=== PATIENT | female | born 1945 | race Caucasian/White ===

== ENCOUNTER → 2016-08-15 | Outpatient (CLI) | payer MEDICARE, OTHER | END | disposition home or self-care (01) | LOC: GMAM 14:34 | PROVIDERS: ATTEND Family Medicine | DX: D64.9 Anemia, unspecified (principal) ==

== ENCOUNTER → 2016-09-17 | Outpatient (CLI) | payer MEDICARE, OTHER | LOC: LAB.O 15:59 | PROVIDERS: ATTEND Internal Medicine Hematology & Oncology | DX: D70.9 Neutropenia, unspecified (principal); D64.9 Anemia, unspecified ==

== ENCOUNTER → 2017-02-05 | Outpatient (CLI) | payer MEDICARE, OTHER | END | disposition home or self-care (01) | LOC: GMAM 16:34 | PROVIDERS: ATTEND Family Medicine | DX: E53.8 Deficiency of other specified B group vitamins (principal); E55.9 Vitamin D deficiency, unspecified ==

== ENCOUNTER → 2017-04-17 | Outpatient (CLI) | payer MEDICARE, BC | END | disposition home or self-care (01) | LOC: GMAM 15:13 | PROVIDERS: ATTEND Family Medicine | DX: R10.84 Generalized abdominal pain (principal) ==

== ENCOUNTER → 2017-04-22 | Outpatient (CLI) | payer MEDICARE, BC ==
--- NOTE | 2017-04-22 13:43 | CT ---
EXAM DESCRIPTION: Abdoment/Pelvis w/o Contrast CLINICAL HISTORY: ABD PAIN COMPARISON: None. TECHNIQUE: Noncontrast transaxial CT images of the abdomen and pelvis are obtained. This exam was performed according to our departmental dose-optimization program, which includes automated exposure control, adjustment of the mA and/or kV according to patient size and/or use of iterative reconstruction technique . FINDINGS: The visualized lung bases show no acute findings. Given the limitations of a noncontrast exam the liver, spleen, and adrenal glands are unremarkable. Surgical clips from cholecystectomy are seen. There is moderate to severe fatty replacement and atrophy of the pancreas which can be seen in patients with long-standing diabetes. Moderate atherosclerotic disease is seen without aneurysmal dilatation of the aorta. There is a tiny 2 mm calcification in the cortex of the upper pole right kidney on image 74 coronal reconstructed images. Small 2 mm cortical calcification in the lower pole of the left kidney is seen. Question nonobstructing calcification in an upper pole calyx of the left kidney on image 76. No ureteral calcification or obstruction is seen. Urinary bladder is contracted and not evaluated. There does appear to be some air in the urinary bladder could be iatrogenic related to recent catheterization. Fistula with the bowel is considered less likely although not entirely excluded. The appendix is not identified. The uterus is presumed surgically absent. The ovaries are not identified. Stomach is contracted and not well evaluated. No small bowel obstruction is seen. Focal hyperdense material seen throughout the colon. There are moderate scattered diverticuli throughout the colon without associated inflammatory changes or fluid collections. Osseous structures show degenerative changes of the spine. No aggressive bony lesions are seen.. IMPRESSION: Nonspecific calcifications in the renal cortex are seen bilaterally with nonobstructing left nephrolithiasis. No acute findings on CT of the abdomen and pelvis. Colon diverticulosis without CT evidence of diverticulitis. Other findings as described in body of the report Electronically signed by: Kel Booker MD 04/22/2017 1:42 PM CDT
== END | disposition home or self-care (01) ==
LOC: CT 09:44
PROVIDERS: ATTEND Family Medicine
DX: N20.0 Calculus of kidney (principal); R10.84 Generalized abdominal pain

== ENCOUNTER → 2017-06-10 | Outpatient (CLI) | payer MEDICARE, BC | END | disposition home or self-care (01) | LOC: GMAM 11:34 | PROVIDERS: ATTEND Family Medicine | DX: E53.8 Deficiency of other specified B group vitamins (principal); E55.9 Vitamin D deficiency, unspecified ==

== ENCOUNTER → 2017-06-17 | Outpatient (CLI) | payer MEDICARE, BC ==
--- NOTE | 2017-06-17 17:28 | MAM ---
EXAM DESCRIPTION: 3D Screening BILATERAL : Digital Mammography. CLINICAL HISTORY: 71 years Female SCREENING . No complaints. No family history of breast cancer. Postmenopausal. No HRT. COMPARISON: 2-D digital screening bilateral studies 10/24/2015 and 10/18/2014. No prior reports available. TECHNIQUE: Bilateral CC and MLO projection full-field images, 3-D tomosynthesis digital mammographic technique. Also bilateral synthesized CC/ MLO full-field images. CAD not utilized. FINDINGS: The breast parenchymal density pattern is: Heterogeneously dense breast tissue, which may obscure small masses. No skin thickening or nipple retraction . Bilateral ductal type calcifications and solitary calcifications more in the right breast. Calcifications have increased bilaterally since prior study. Bilateral intramammary lymph nodes. No focal, stellate mass or density, focal asymmetry , and no suspicious microcalcifications or laterally. IMPRESSION: BI-RADS CATEGORY: 2 - BENIGN FINDINGS. FOLLOW UP: Routine digital bilateral screening, one year interval from May 2017. Written communication explaining the IMPRESSION and follow-up, will be mailed to the patient and referring health care provider. According to the [employer], yearly mammograms are recommended starting at age 40 and continuing as long as a woman is in good health. Any breast change noted on a breast self-exam should be reported promptly to the patient's healthcare provider. Breast MRI is recommended for women with an approximately 20-25% or greater lifetime risk of breast cancer, including women with a strong family history of breast or ovarian cancer and women who have been treated for Hodgkin's disease. A negative mammographic report should not delay tissue diagnosis in patients with significant clinical history or physical findings. Extremely dense breast tissue limits the sensitivity of digital mammography. Electronically signed by: Andrey Grider MD 06/17/2017 5:[address]
== END | disposition home or self-care (01) ==
LOC: MAMMO 09:57
PROVIDERS: ATTEND Family Medicine
DX: Z12.31 Encounter for screening mammogram for malignant neoplasm of breast (principal)
CPT/HCPCS: 77063; G0202

== ENCOUNTER 2017-09-11 12:40 | Emergency (ER) | payer MEDICARE, BC ==
--- NOTE | 2017-09-11 13:05 | ED.PDOC ---
History of Present Illness - General Chief Complaint: Trauma Stated Complaint: right shoulder and knee pain Time Seen by Provider: 09/11/17 12:50 Source: patient Exam Limitations: no limitations - History of Present Illness Initial Comments: Divya Candelaria 72 y/o female stated that as she was going up the platform of the [employer] tripped on the step fell on her right side with dull ache on her right shoulder and knee after the incident.Denies neck,head ,hip pains or passing out.Painful to move right arm. Occurred: just prior to arrival Severity: moderate Injuries/Pain Location: other - right upper and right knee Reason for Fall: tripped Loss of Consciousness: no loss of consciousness Improving Factors: rest Worsening Factors: movement Associated Symptoms (Fall): denies symptoms Allergies/Adverse Reactions: Allergies NO KNOWN ALLERGY Allergy (Verified 09/11/17 12:56) Home Medications: Ambulatory Orders Atorvastatin Calcium [Lipitor] 10 mg PO DAILY 09/11/17 Bisoprolol Fumarate 2.5 mg PO DAILY 09/11/17 Memantine HCl-Donepezil HCl [Namzaric 28-10 mg] 1 cap PO DAILY 09/11/17 Metformin HCl 1,000 mg PO BID 09/11/17 Tramadol HCl 50 mg PO BID #14 tab 09/11/17 Review of Systems - Review of Systems Constitutional: States: no symptoms reported EENTM: States: no symptoms reported Respiratory: States: no symptoms reported Cardiology: States: no symptoms reported Musculoskeletal: States: see HPI All other Systems: Reviewed and Negative, No Change from Baseline Past Medical History (General) - Patient Medical History Hx Stroke: No Hx Dementia: Yes Hx Congestive Heart Failure: No Hx Diabetes: Yes Surgical History: appendectomy, cholecystectomy, other - hysterectomy,knee - Vaccination History Hx Influenza Vaccination: Yes Hx Pneumococcal Vaccination: Yes - Social History Hx Tobacco Use: No Hx Alcohol Use: No Hx Physical Abuse: No Hx Emotional Abuse: No Hx Suspected Abuse: No - Activities of Daily Living Patient Lives Alone: No Grooming Ability: Independent Eating (Feeding) Ability: Independent Toileting Ability: Independent - Female History Patient is a Female of Child Bearing Age (10 -59 yrs old): Yes Patient : No Physical Exam - Physical Exam General Appearance: Alert, Comfortable, No apparent distress Head Injury: no evidence of injury Eye Exam: bilateral normal ENT Exam: hearing grossly normal, no evidence of ENT injury, no dental injury Peripheral Pulses: radial,right: 2+, radial,left: 2+ Cardiovascular/Respiratory: regular rate, rhythm, no M/R/G, normal peripheral pulses, no JVD Gastrointestinal/Abdominal: non tender, soft, no organomegaly Back Exam: no vertebral tenderness Neurologic: no motor/sensory deficits, alert, oriented x 3 Skin Exam: normal color, warm/dry - Nilesh Coma Score Best Eye Response (Garrison): (4) open spontaneously Best Verbal Response (Nilesh): (5) oriented Best Motor Response (Nilesh): (6) obeys commands Garrison Total: 15 Progress - Progress Progress: 09/11/17 13:07 Vital Signs - 8 hr 09/11/17 12:53 Temperature 96.6 F L Pulse Rate [ 61 Left Brachial] Respiratory 20 Rate Blood Pressure 152/76 [Left Arm] O2 Sat by Pulse 100 Oximetry - EKG/XRAY/CT XRAY: - right humeral head fracture Departure - Departure Clinical Impression: Fall Qualifiers: Encounter type: initial encounter Qualified Code(s): W19.XXXA - Unspecified fall, initial encounter Fracture, humerus, head Qualifiers: Encounter type: initial encounter Fracture type: closed Laterality: right Qualified Code(s): S42.291A - Other displaced fracture of upper end of right humerus, initial encounter for closed fracture Pain, knee Qualifiers: Chronicity: unspecified Laterality: right Qualified Code(s): M25.561 - Pain in right knee Time of Disposition: 13:49 Disposition: Discharge to Home or Self Care Condition: Good Departure Forms: ED Discharge - Pt. Copy, Patient Portal Self Enrollment Instructions: DI for Shoulder Fracture Referrals: Mt Osullivan MD [Primary Care Provider] - 1-2 Weeks Prescriptions: Tramadol HCl 50 mg PO BID #14 tab Home Medications: Ambulatory Orders Atorvastatin Calcium [Lipitor] 10 mg PO DAILY 09/11/17 Bisoprolol Fumarate 2.5 mg PO DAILY 09/11/17 Memantine HCl-Donepezil HCl [Namzaric 28-10 mg] 1 cap PO DAILY 09/11/17 Metformin HCl 1,000 mg PO BID 09/11/17 Tramadol HCl 50 mg PO BID #14 tab 09/11/17 Additional Instructions: Follow up with primary Md 09/12/2017
[2017-09-11 13:06] VITALS: TEMP 96.6
--- NOTE | 2017-09-11 13:41 | RAD ---
Right humerus HISTORY: Pain FINDINGS: Two views of right humerus demonstrate impacted and mildly angulated fracture at the junction of the humeral head and neck. Possible additional cortical dehiscence in humeral head. Remainder of the humerus demonstrate that no additional injury. Bony alignment in the shoulder and elbow joints are grossly maintained. IMPRESSION: Impacted and mildly angulated fracture at the junction of the right humeral head and neck. Electronically signed by: Brennen King MD 09/11/2017 1:40 PM CDT
--- NOTE | 2017-09-11 13:42 | RAD ---
Right knee HISTORY: Pain FINDINGS: Two views of right knee demonstrate changes of total knee arthroplasty with patellar resurfacing. Prosthetic components are intact with unremarkable alignment, without evident loosening. No bony fracture nor dislocation around the knee joint. No suprapatellar effusion or other soft tissue abnormality. IMPRESSION: Unremarkable postsurgical changes in right knee. No bony injury. Electronically signed by: Brennen King MD 09/11/2017 1:41 PM CDT
--- NOTE | 2017-09-11 13:44 | RAD ---
EXAM DESCRIPTION: Shoulder,Right 2 or More Views CLINICAL HISTORY: 72 years Female, pain COMPARISON: None. FINDINGS: 3 views of the right shoulder show a minimally displaced right humeral head and neck fracture. The glenohumeral joint is anatomically aligned. The AC joint is unremarkable. IMPRESSION: Minimally displaced right humeral head and neck fracture. Electronically signed by: Brian Champion MD 09/11/2017 1:43 PM CDT
[2017-09-11] MEDS ORDERED: HYDROcodone 7.5MG/APAP 325MG 1 EA TAB PO ONE (13:49)
[2017-09-11 14:14] VITALS: BP 145/92; O2SAT 99
== END 2017-09-11 14:14 | disposition home or self-care (01) ==
LOC: ER 12:40
DX: S42.291A Other displaced fracture of upper end of right humerus, initial encounter for closed fracture (principal); M25.561 Pain in right knee; F03.90 Unspecified dementia, unspecified severity, without behavioral disturbance, psychotic disturbance, mood disturbance, and anxiety; E11.9 Type 2 diabetes mellitus without complications; W19.XXXA Unspecified fall, initial encounter

== ENCOUNTER 2017-09-12 05:57 | Emergency (ER) | payer MEDICARE, BC ==
[2017-09-12 06:20] VITALS: TEMP 95.3
--- NOTE | 2017-09-12 06:24 | ED.PDOC ---
History of Present Illness - General Source: family - , EMS Exam Limitations: no limitations - History of Present Illness Initial Comments: Divya [id number] y/o female brought by EMS after getting weak on her right lower extremities and passed out on her way to the bathroom behind her and had blank stare for several minutes EMS was then called up.She had 2 syncopal episodes last night fell on left side as she was on her way to the bathroom then a few seconds later as she was walking on her way to the other room lasting only for few seconds but no blank stare noted. stated that she was doing well last night went to [place] and played cards with friends.She was also seen here yesterday morning after tripping and falling and had right humeral fracture was placed on sling.On her arrival at ER she was awake,talking to husbandHad previous MRI brain-2016 calcified meningioma Timing/Prior Episodes: multiple episodes today Precipitating Factors: none Context: other - walking Episode Description: see hpi Loss of Consciousness: dazed Current Symptoms: back to normal <Shaan Hurtado - Last Filed: 09/12/17 07:01> <Thi Velez - Last Filed: 09/12/17 10:26> - General Chief Complaint: General Stated Complaint: Rt side weakness Time Seen by Provider: 09/12/17 06:04 - History of Present Illness Allergies/Adverse Reactions: Allergies NO KNOWN ALLERGY Allergy (Verified 09/12/17 06:11) Home Medications: Ambulatory Orders Atorvastatin Calcium [Lipitor] 10 mg PO DAILY 09/11/17 Bisoprolol Fumarate 2.5 mg PO DAILY 09/11/17 Memantine HCl-Donepezil HCl [Namzaric 28-10 mg] 1 cap PO DAILY 09/11/17 Metformin HCl 1,000 mg PO BID 09/11/17 Tramadol HCl 50 mg PO BID #14 tab 09/11/17 Cholecalciferol [Vitamin D3] 1,000 unit PO DAILY 09/12/17 Cyanocobalamin [Vitamin B12] 1,000 mcg PO DAILY 09/12/17 Exenatide [Bydureon] 2 mg SC WKLY 09/12/17 Review of Systems - Review of Systems Constitutional: States: weakness EENTM: States: no symptoms reported Respiratory: States: no symptoms reported Cardiology: States: no symptoms reported Gastrointestinal/Abdominal: States: other - tarry stool had negative EGD/ Colonoscopy Genitourinary: States: no symptoms reported Musculoskeletal: States: no symptoms reported Neurological: States: see HPI Endocrine: States: no symptoms reported All other Systems: Reviewed and Negative, No Change from Baseline <GenesisGarduno R - Last Filed: 09/12/17 07:01> Past Medical History (General) - Patient Medical History Hx Seizures: No Hx Stroke: No Hx Dementia: No Hx Asthma: No Hx of COPD: No Hx Cardiac Disorders: No Hx Congestive Heart Failure: No Hx Pacemaker: No Hx Hypertension: No Hx Thyroid Disease: No Hx Diabetes: Yes Hx Gastroesophageal Reflux: No Hx Renal Disease: No Hx Cancer: No Hx of HIV: No Hx Hepatitis C: No Hx MRSA: No Surgical History: appendectomy, cholecystectomy, other - hysterectomy - Vaccination History Hx Tetanus, Diphtheria Vaccination: Yes Hx Influenza Vaccination: Yes Hx Pneumococcal Vaccination: Yes - Social History Hx Tobacco Use: No Hx Alcohol Use: No Hx Substance Use Treatment: No Hx Depression: No Hx Physical Abuse: No Hx Emotional Abuse: No Hx Suspected Abuse: No - Activities of Daily Living Grooming Ability: Independent Eating (Feeding) Ability: Independent Toileting Ability: Independent - Female History Patient : No - Triage Comment ED Triage Comment: Presents to ER via [facility] fron home---c/o right side weakness from fall yesterday. Fall this morning at home--LOC was decreased states . <GenseisGarduno R - Last Filed: 09/12/17 07:01> Physical Exam - Physical Exam General Appearance: Alert, Comfortable, No apparent distress Eyes, Ears, Nose, Throat Exam: PERRL/EOMI, normal ENT inspection Neck: non-tender, full range of motion, supple Cardiovascular/Respiratory: regular rate, rhythm, no M/R/G, normal peripheral pulses Gastrointestinal/Abdominal: normal bowel sounds, non tender, soft Back Exam: normal inspection, no CVA tenderness, no vertebral tenderness Extremity: no pedal edema, no calf tenderness Mental Status: alert, oriented x 3 breast surgeon Exam: normal hearing, normal speech Coordination/Gait: other - not tested Motor/Sensory: weak motor strength RLE Skin Exam: normal color, warm/dry Lymphatic: no adenopathy <Shaan Hurtado R - Last Filed: 09/12/17 07:01> Progress - Progress Progress: 09/12/17 06:54 09/12/17 05:55 CARDIAC PANEL,ER Stat HEPATIC FUNCTION PANEL Stat D-DIMER,QUANTITATIVE Stat URINALYSIS Stat 09/12/17 06:20 Head [CT] Stat 09/12/17 06:32 Chest,1 View [RAD] Stat Pelvis,2 or More Views [RAD] Stat 09/12/17 06:35 EKG Assessment ONCE 09/12/17 06:45 EKG STAT 09/12/17 06:50 GLUCOSE, FINGER STICK Stat 09/12/17 06:54 Vital Signs - 8 hr 09/12/17 06:14 Temperature 95.3 F L Pulse Rate [ 66 monitor] Respiratory 20 Rate Blood Pressure 128/51 [monitor] O2 Sat by Pulse 100 Oximetry - EKG/XRAY/CT CT Ordered: Yes CT Interpretation Call Back: Yes <Shaan Hurtado - Last Filed: 09/12/17 07:01> - Results/Orders Results/Orders: LABS REVIEWED ALL WITHIN NORMAL LIMITS PE STUDY NEG FOR PE TILT POSITIVE 122 /66 HR 62 FLAT AND 90/60 HR 92 UPRIGHT PT RECEIVED 1 L FLUID AND POST FLUID TILT REPEATED 115 /50 HR 73 FLAT 104 /64 HR 83 UPRIGHT PT FEELS BETTER WILL DC HOME HOLD BP MEDS INCREASE FLUID INTAKE FOLLOW UP WITH YOUR MD <Thi Velez - Last Filed: 09/12/17 10:26> Departure <Shaan Hurtado - Last Filed: 09/12/17 07:01> - Departure Time of Disposition: 10:26 <Thi Velez - Last Filed: 09/12/17 10:26> - Departure Clinical Impression: Orthostatic hypotension Disposition: Discharge to Home or Self Care Condition: Good Departure Forms: ED Discharge - Pt. Copy, Patient Portal Self Enrollment Referrals: Mt Osullivan MD [Primary Care Provider] - 1-2 Weeks Home Medications: Ambulatory Orders Atorvastatin Calcium [Lipitor] 10 mg PO DAILY 09/11/17 Bisoprolol Fumarate 2.5 mg PO DAILY 09/11/17 Memantine HCl-Donepezil HCl [Namzaric 28-10 mg] 1 cap PO DAILY 09/11/17 Metformin HCl 1,000 mg PO BID 09/11/17 Tramadol HCl 50 mg PO BID #14 tab 09/11/17 Cholecalciferol [Vitamin D3] 1,000 unit PO DAILY 09/12/17 Cyanocobalamin [Vitamin B12] 1,000 mcg PO DAILY 09/12/17 Exenatide [Bydureon] 2 mg SC WKLY 09/12/17
--- NOTE | 2017-09-12 06:57 | CT ---
CT head without contrast on 09/12/2017 CLINICAL INDICATION: Right-sided weakness TECHNIQUE: Multiple axial images are obtained throughout the head without the administration of contrast. This exam was performed according to our departmental dose-optimization program, which includes automated exposure control, adjustment of the mA and/or kV according to patient size and/or use of iterative reconstruction technique. Total DLP is 752.48 mGy*cm. COMPARISON: CT from 06/17/2007 and MRI from 01/31/2016 FINDINGS: There is a very small arachnoid cyst in the left anterior temporal region again noted. There is generalized cerebral atrophy. There is no hydrocephalus. Stable small calcified left frontal meningioma is again noted. There is no CT evidence of acute infarct. There is no hemorrhage. There are no abnormal extra-axial fluid collections. There is no other mass and no mass effect or midline shift. No bony abnormality is noted. IMPRESSION: Stable examination with no acute intracranial abnormality. Electronically signed by: Kwame Boyce 09/12/2017 6:56 AM CDT
--- NOTE | 2017-09-12 06:59 | RAD ---
Chest single view on 09/12/2017 CLINICAL INDICATION: Chest pain after fall COMPARISON: 09/21/2008 FINDINGS: The lungs are clear. Mild vascular calcification is noted in the aorta. Cardiac, hilar and mediastinal contours are within normal limits. Pulmonary vascularity is within normal limits. No bony abnormality is noted. IMPRESSION: No active disease. Electronically signed by: Kwame Boyce 09/12/2017 6:58 AM CDT
--- NOTE | 2017-09-12 07:01 | RAD ---
Pelvis and hips two view on 09/12/2017 CLINICAL INDICATION: Pain after fall COMPARISON: CT from 04/24/2017 FINDINGS: Scattered ingested small densities are noted throughout the colon. Degenerative changes are noted in the lower lumbar spine. The hips are well located. The SI joints are well aligned. There are no fractures.. No significant degenerative changes are noted in the hips. IMPRESSION: No acute abnormality. Electronically signed by: Kwame Boyce 09/12/2017 7:00 AM CDT
--- NOTE | 2017-09-12 07:53 | CT ---
EXAM DESCRIPTION: CTA Chest CLINICAL HISTORY: abnormal ddimer chest pain, shortness of breath COMPARISON: None. TECHNIQUE: Postcontrast CT images of the chest are obtained using pulmonary embolism imaging protocol. Three-D MIP reconstructed images of the arterial vasculature are obtained. Coronal and sagittal reconstructed images of the also provided. This exam was performed according to our departmental dose-optimization program, which includes automated exposure control, adjustment of the mA and/or kV according to patient size and/or use of iterative reconstruction technique . FINDINGS: The heart is enlarged. Mild coronary artery calcifications are seen. Mild calcifications of the proximal ascending thoracic aorta. The ascending thoracic aorta measures 4.2 cm which is ectatic. Aortic arch measures 3.1 cm. The mid descending thoracic aorta measures 2.9 cm. No evidence of aortic dissection. Great vessels are unremarkable. No definite filling defects or emboli are seen in the pulmonary arteries. No significant pleural or pericardial effusion is seen. The visualized portion of the upper abdomen shows nodular thickening of the adrenal glands with Hounsfield units of 38. Surgical clips from cholecystectomy are seen. Lungs are normally aerated without acute appearing infiltrate or consolidation. Mild interstitial thickening in the lingula could represent atelectasis versus scarring. No obvious bronchiectasis. No worrisome pulmonary nodules. The osseous structures show no aggressive bony lesions. Asymmetric cutaneous fat stranding in the right axillary and right upper extremity region are seen with mild thickening and irregularity of the musculature of the right upper extremity partly visualized. There is skin thickening and edema of the partly visualized mid right upper extremity. IMPRESSION: No radiographic evidence of pulmonary embolism. There is ectasia of the ascending thoracic aorta without evidence of aortic dissection. Question infectious or inflammatory changes versus posttraumatic changes in the right axillary and upper extremity. Correlate with clinical findings and patient history. Nodular thickening of the adrenal glands could represent adrenal hyperplasia or adenomas. In retrospect, this may be slightly more prominent than previous CT scan in March 2017. Consider nonemergent CT adrenal gland protocol follow-up. Electronically signed by: Kel Booker MD 09/12/2017 7:52 AM CDT
[2017-09-12 08:03] VITALS: O2SAT 99
[2017-09-12] MEDS: SODIUM CHLORIDE 0.9% 1000ML 1,000 ML IVS ONE (08:39)
[2017-09-12 10:24] VITALS: BP 115/50
== END 2017-09-12 10:45 | disposition home or self-care (01) ==
LOC: ER 05:57
DX: I95.1 Orthostatic hypotension (principal); E11.9 Type 2 diabetes mellitus without complications; Z79.899 Other long term (current) drug therapy; W19.XXXA Unspecified fall, initial encounter; Z91.81 History of falling; Y92.009 Unspecified place in unspecified non-institutional (private) residence as the place of occurrence of the external cause
CPT/HCPCS: 36415; 70450; 71045; 71275; 72190; 80048; 80076; 81001; 82550; 82553; 82948; 84484; 85025; 85379; 85610; 85730; 93005; J7030

== ENCOUNTER → 2017-09-26 | Outpatient (CLI) | payer MEDICARE, BC ==
--- NOTE | 2017-09-26 21:31 | CT ---
EXAM DESCRIPTION: Abdomen w/wo Contrast: Computed Tomography. CLINICAL HISTORY: ADRENAL GLAND HYPERPLASIA COMPARISON: CTA of the chest 09/12/2017. TECHNIQUE: Spiral-axial scans at 5.0 mm intervals through the abdomen before and after standard dose nonionic IV contrast, then 10 minute delay helical axial 5.0 mm scans. No oral contrast. Coronal and sagittal 2.0 mm reconstructions. No adverse reactions. Total Exam DLP 1987.34 mGy - cm. This exam was performed according to our departmental CT dose-optimization program which includes automated exposure control, adjustment of the mA and/or kV according to patient size and/or use of iterative reconstruction technique; to reduce radiation dose to as low as reasonably achievable (ALARA). FINDINGS: Lung bases and pleura: Unremarkable Liver, Stomach, Spleen, Adrenal Glands: Left adrenal gland is enlarged but maintains customary shape. Precontrast density of the glands: +22 on the right and +18 on the left. Immediate postcontrast density right +60, left +74. 10 minute delayed postcontrast density right +36, left +42. Stomach is unremarkable. Liver and spleen are negative. Pancreas, Gallbladder, Ducts: Surgical clips gallbladder fossa with no fluid. Dilated common bile duct 9 mm proximally and 10 mm distally. Significant infiltration of the pancreas with fat with normal parenchyma very likely visible but no definite mass. Kidneys and Ureters: 2 mm radiodense stone in the upper pole of the right kidney with no hydronephrosis bilaterally or hydroureter. Distal ureters are not imaged. No perinephric stranding. Mesentery no fascial thickening or fatty stranding. No peritoneal fluid or free air. Aorta: Minimal atherosclerotic calcification and ectasia of the abdominal aorta. Minimal calcification of the branch vessels. Small Bowel: Minimal distention with fluid and gas. No air-fluid levels. Terminal Ileum/Cecum: Not on the study. Colon: Fecal material proximal colon moderate amount of gas within colon. Normal caliber of the included distal colon. No air-fluid levels. Spine: Spondylosis L5-S1 and L2-3. Spur encroaching on the right L5-S1 foramen and the exiting right L5 nerve. Also narrowing left foramen and bilateral L4-5 foramen. Abdominal Wall/Back Soft Tissues: Surgical clips near the region of the umbilicus. Oval-shaped subcutaneous adipose well-defined low-density tissue at the level of the upper left pelvis measuring approximately 4.7 x 3.9 x 5.5 cm. IMPRESSION: 1. Uniform left adrenal gland enlargement maintaining normal shape with homogeneous enhancement. The contrast washout parameters are not consistent with adenoma, and this is most likely hyperplasia. Right adrenal gland is not enlarged. Normal contrast parameters. 2. Dilated common duct with no intrahepatic biliary dilatation. Significantly diffuse fatty infiltration of the pancreas. Most likely related to previous cholecystectomy. 3. Nonobstructing 2 mm radiodense stone in the superior collecting system of the right kidney. 4. Minimal bowel stasis proximal bowel with no small bowel obstruction. Minimal fecal obstipation ascending colon. 5. Spondylosis lower lumbar spine. Spur in the left foramen at L5-S1 may be impinging the exiting left L5 nerve. Correlate for radiculopathy. 6. 5.5 cm lipoma subcutaneous upper lateral left buttock. Electronically signed by: Andrey Grider MD 09/26/2017 9:28 PM CDT
--- NOTE | 2017-09-26 21:46 | MRI ---
EXAM DESCRIPTION: Brain w/wo Contrast: Magnetic Resonance Imaging. CLINICAL HISTORY: SYNCOPE COMPARISON: MRI brain 01/31/2016. CT scan of the head 09/12/2017. TECHNIQUE: Multiplanar, high-field MRI, multiple conventional sequences, without and with gadolinium IV contrast. No adverse reactions. Multiple axial diffusion sequences. FINDINGS: Stable bilateral multiple foci of bright FLAIR and T2-weighted signal in the periventricular white matter and wilde-white matter junctions of the cerebral hemispheres. . No hemorrhage, mass effect, or diffusion restriction. Stable anterior FLAIR and T2 focus right basal ganglia. No hemorrhage, no cerebral edema, no mass-effect or diffusion restriction.. Stable partially calcified and enhancing meningioma abutting the supraventricular posterior lateral left frontal lobe. Is almost totally calcified on the recent CT scan. Normal contrast enhancement elsewhere in the brain. Normal signal in the brainstem and cerebellar hemispheres. No hemorrhage, no cerebral edema, no mass-effect. Normal contrast enhancement. Concordance of the diffusion and non-diffusion sequences with no evidence of acute or subacute infarction. Cortical sulci, ventricles, and other CSF spaces, and the subdural spaces are normally configured.. No effacement or displacement. No midline shift. No extra-axial hemorrhage. Normal contrast enhancement. Normal flow signal void in the major vessels of the [place], and the venous sinuses. IACs are symmetric bilaterally. Normal signal in the bilateral mastoid air cells. No mass effect in the bilateral cerebellopontine angles. Normal contrast enhancement. Pituitary gland occupies most of the sella. Normal contrast enhancement. Base of the cerebellar tonsils is above the foramen magnum. Minimal mucoperiosteal thickening in the right side paranasal sinuses. The bony calvarium is intact. IMPRESSION: 1. Stable extra-axial meningioma abutting the superior lateral posterior left frontal lobe. No diffusion restriction. 2. Stable foci of small vessel disease in the bilateral periventricular white matter and subcortical white matter. No diffusion restriction. Stable lesion in the right basal ganglia which could represent ischemia or old lacunar infarct. No diffusion restriction. 3. No abnormal signal or enhancement in the brainstem. No mass effect or abnormal contrast enhancement in the cerebellopontine angles. Electronically signed by: Andrey Grider MD 09/26/2017 9:44 PM CDT Workstation: [id number]
== END ==
LOC: CT 07:24
PROVIDERS: ATTEND Family Medicine
DX: E27.9 Disorder of adrenal gland, unspecified (principal); I95.1 Orthostatic hypotension; D32.0 Benign neoplasm of cerebral meninges; N20.0 Calculus of kidney; D17.1 Benign lipomatous neoplasm of skin and subcutaneous tissue of trunk; M47.897 Other spondylosis, lumbosacral region

== ENCOUNTER → 2017-09-27 | Outpatient (CLI) | payer MEDICARE, BC ==
--- NOTE | 2017-09-28 08:43 | RAD ---
EXAM DESCRIPTION: Shoulder,Right 2 or More Views CLINICAL HISTORY: RIGHT SHOULDER PAIN M25.511 COMPARISON: Previous right shoulder x-rays September 11, 2017 TECHNIQUE: Two views of the right shoulder. FINDINGS: Alignment has changed with major distal fracture fragment displaced medially approximately 1.2 cm. Mild comminution is present. Main fracture line traverses the surgical neck. There may be a separate fragment of the greater tuberosity. The medial humeral head still articulates with the glenoid fossa. Transscapular Y view shows no AP displacement or dislocation. Intact acromioclavicular joint. Clavicle and scapula appear intact. Transaxillary view shows impacted appearance. IMPRESSION: Medial displacement of the major distal fracture fragment 1.2 cm. Electronically signed by: Petr Elaine MD 09/28/2017 8:42 AM CDT
--- NOTE | 2017-09-28 08:45 | RAD ---
EXAM DESCRIPTION: Knee,Right Complete CLINICAL HISTORY: 72 years, Female, RIGHT PAIN. M25.561 COMPARISON: Previous study September 11, 2017 TECHNIQUE: 4 views of the right knee FINDINGS: Total right knee arthroplasty is noted with no complicating fracture or periprosthetic osteolysis. Patella is normally positioned with posterior superior spurring. No definite joint effusion. Quadriceps and patellar tendons appear intact. Bones appear osteopenic. No complicating fracture. No dislocation. Compared to previous study, no change is evident. IMPRESSION: Total right knee arthroplasty. No complicating fracture. Electronically signed by: Petr Elaine MD 09/28/2017 8:44 AM CDT
--- NOTE | 2017-09-28 08:46 | RAD ---
EXAM DESCRIPTION: Pelvis CLINICAL HISTORY: 72 years Female, RIGHT HIP PAIN. M25.551 COMPARISON: None. TECHNIQUE: Single frontal view of the pelvis. FINDINGS: Degenerative changes are seen in the lower L-spine with surgical clips over the right iliac wing and lower L-spine. Sacrum appears intact. Degenerative changes are seen at the pubic symphysis. No hip dislocation or fracture of the proximal femurs. IMPRESSION: Negative for fracture or dislocation. Degenerative changes in lower lumbar spine. Electronically signed by: Petr Elaine MD 09/28/2017 8:45 AM CDT
== END ==
LOC: RAD 07:53
PROVIDERS: ATTEND Orthopaedic Surgery
DX: S42.291D Other displaced fracture of upper end of right humerus, subsequent encounter for fracture with routine healing (principal); M25.561 Pain in right knee; M25.551 Pain in right hip; Z96.651 Presence of right artificial knee joint

== ENCOUNTER → 2017-10-08 | Outpatient (CLI) | payer MEDICARE, BC ==
--- NOTE | 2017-10-10 16:58 | US ---
EXAM DESCRIPTION: Carotid Duplex CLINICAL HISTORY: CEREBROVASCULAR DISEASE COMPARISON: None Available. TECHNIQUE: Carotid Doppler ultrasound FINDINGS: Right Submitted images show no significant stenosis is seen in the common carotid, internal carotid or external carotid arteries. Tortuosity of the left CCA is noted with soft plaque at the carotid bifurcation. The following flow velocities were obtained: Common carotid artery peak systolic flow velocity measures 68 cm/s. Internal carotid artery peak systolic flow velocity measures 42 cm/s. External carotid artery peak systolic flow velocity measures 33 cm/s. Flow in the right vertebral artery is antegrade. The right internal carotid to common carotid peak systolic flow velocity ratio equals 0.6 which is normal. Left Submitted images show normal caliber of the left common carotid, internal carotid and external carotid arteries with no significant stenosis. Calcified plaque is seen at the left carotid bifurcation. The following flow velocities were obtained: Common carotid artery peak systolic flow velocity measures 65 cm/s. Internal carotid artery peak systolic flow velocity measures 57 cm/s. External carotid artery peak systolic flow velocity measures 59 cm/s. Flow in the left vertebral artery is antegrade. The left internal carotid to common carotid peak systolic flow velocity ratio of 0.8 is normal. IMPRESSION: No significant stenosis. Electronically signed by: Petr Elaine MD 10/10/2017 4:57 PM CDT
== END | disposition home or self-care (01) ==
LOC: GMAM 12:35
PROVIDERS: ATTEND Family Medicine
DX: I67.89 Other cerebrovascular disease (principal); E27.9 Disorder of adrenal gland, unspecified

== ENCOUNTER → 2017-12-03 | Outpatient (CLI) | payer MEDICARE | LOC: GMAM 11:47 | PROVIDERS: ATTEND Family Medicine | DX: E53.8 Deficiency of other specified B group vitamins (principal); E55.9 Vitamin D deficiency, unspecified ==

== ENCOUNTER → 2017-12-04 | Outpatient (CLI) | payer MEDICARE | LOC: GMAM 16:25 | PROVIDERS: ATTEND Family Medicine | DX: B35.3 Tinea pedis (principal); R50.9 Fever, unspecified ==

== ENCOUNTER → 2018-03-20 | Outpatient (CLI) | payer MEDICARE ==
--- NOTE | 2018-03-20 21:42 | US ---
EXAM DESCRIPTION: Soft Tissue,Head/Neck: ULTRASOUND. CLINICAL HISTORY: MASS bilateral neck. Palpable. Inferior to mandible. COMPARISON: None Available. TECHNIQUE: Transcutaneous scanning: Espinal-scale and Doppler modes. FINDINGS: Scanning of the right side of the neck. Mass measures 2.9 x 1.8 x 1.4 cm. Slightly hypoechoic to the fatty subcutaneous tissue. No central echogenicity but minimal central vascularity. This is most likely a reactive lymph node. Scanning of the left side of the neck. Mass measures 2.4 x 2.8 x 1.0. Hypoechoic compared to the overlying subcutaneous fat. No central echogenicity but central vascularity. Most likely a reactive lymph node. IMPRESSION: Bilateral reactive lymph nodes posterior to the submandibular region. Consider follow-up CT scan of the neck soft tissues with IV contrast.. Electronically signed by: Andrey Grider MD 03/20/2018 9:40 PM CDT
== END ==
LOC: US 13:30
PROVIDERS: ATTEND Family Medicine
DX: R22.9 Localized swelling, mass and lump, unspecified (principal)

== ENCOUNTER → 2018-03-25 | Outpatient (CLI) | payer MEDICARE ==
--- NOTE | 2018-03-26 10:20 | CT ---
EXAM DESCRIPTION: Soft Tissue Neck w/Contrast CLINICAL HISTORY: 72 years Female, NECK MASS COMPARISON: None. TECHNIQUE: CT soft tissue neck was performed without IV contrast. This exam was performed according to our departmental dose-optimization program, which includes automated exposure control, adjustment of the mA and/or kV according to patient size and/or use of iterative reconstruction technique. FINDINGS: No apical lung lesion. The thyroid and thoracic inlet are unremarkable. No supraclavicular, cervical or submandibular adenopathy. There are mural calcifications in the left carotid bifurcation without apparent stenosis. The submandibular and parotid glands are unremarkable. Artifact from dental amalgam limits evaluation of the mouth, but no lesion is seen in the floor the mouth. No soft tissue inflammation or skin thickening. No pharyngeal or retropharyngeal soft tissue thickening. The parapharyngeal spaces are unremarkable. The vocal cords are bilaterally symmetric and otherwise unremarkable. No concerning bone lesion. IMPRESSION: No adenopathy or other apparent neck mass. Electronically signed by: Brian Champion MD 03/26/2018 10:19 AM CDT
== END ==
LOC: RAD 14:32
PROVIDERS: ATTEND Family Medicine
DX: R22.9 Localized swelling, mass and lump, unspecified (principal)

== ENCOUNTER → 2018-06-17 | Outpatient (CLI) | payer MEDICARE | LOC: GMAM 12:34 | PROVIDERS: ATTEND Family Medicine | DX: E53.8 Deficiency of other specified B group vitamins (principal); E55.9 Vitamin D deficiency, unspecified ==

== ENCOUNTER → 2018-06-19 | Outpatient (CLI) | payer MEDICARE ==
--- NOTE | 2018-06-20 08:51 | MAM ---
EXAM DESCRIPTION: 3D Screening BILATERAL : Digital Mammography. CLINICAL HISTORY: 72 years Female SCREENING . No complaints and no personal or family history of breast cancer. No childbirth. Postmenopausal 42 years. No HRT. Lifetime risk of developing breast cancer (Tyrer-Cuzick model)(%): 4.5. COMPARISON: Bilateral screening digital breast tomosynthesis 06/17/2017. No prior reports available. TECHNIQUE: Bilateral CC and MLO projection full-field images, digital tomosynthesis mammographic technique. Bilateral digital 2-D full-field MLO images. CAD not available for tomosynthesis or 2-D images. FINDINGS: The breast parenchymal density pattern is: Scattered areas of fibroglandular density. No skin thickening or nipple retraction. Bilateral solitary microcalcifications and secretory calcifications. No new focal, stellate mass or density, focal asymmetry , and no suspicious microcalcifications bilaterally. Stable mammograms compared to prior study. IMPRESSION: Benign exam. BIRAD CATEGORY: 2 BENIGN FINDINGS. RECOMMENDATIONS: FOLLOW UP: Routine digital bilateral mammographic screening, one year interval from May 2018. Written communication explaining the IMPRESSION and follow-up, will be mailed to the patient and referring health care provider. According to the [employer], yearly mammograms are recommended starting at age 40 and continuing as long as a woman is in good health. Any breast change noted on a breast self-exam should be reported promptly to the patient's healthcare provider. Breast MRI is recommended for women with an approximately 20-25% or greater lifetime risk of breast cancer, including women with a strong family history of breast or ovarian cancer and women who have been treated for Hodgkin's disease. A negative mammographic report should not delay tissue diagnosis in patients with significant clinical history or physical findings. Extremely dense breast tissue limits the sensitivity of digital mammography. Electronically signed by: Andrey Grider MD 06/20/2018 8:50 AM [employer]
== END ==
LOC: MAMMO 13:30
PROVIDERS: ATTEND Family Medicine
DX: Z12.31 Encounter for screening mammogram for malignant neoplasm of breast (principal)

== ENCOUNTER → 2019-02-27 | Outpatient (CLI) | payer MEDICARE | LOC: GMAM 10:26 | PROVIDERS: ATTEND Family Medicine | DX: E53.8 Deficiency of other specified B group vitamins (principal); D64.9 Anemia, unspecified; I10 Essential (primary) hypertension; E11.9 Type 2 diabetes mellitus without complications; E55.9 Vitamin D deficiency, unspecified ==

== ENCOUNTER 2019-04-05 11:08 | Emergency (ER) | payer MEDICARE, BC ==
[2019-04-05] MEDS ORDERED: MORPHINE SULFATE INJ 10 MG/ML VIAL IM ONE ×2 (11:18→12:58)
--- NOTE | 2019-04-05 12:36 | CT ---
Sex: Female. : 1945. Technique: Axial scans through the pelvis without intravenous contrast including multiplanar computer reformations. Total Dose Length Product: 653. This exam was performed according to our departmental dose-optimization program, which includes automated exposure control, adjustment of the mA and/or kV according to patient size and/or use of iterative reconstruction technique. Comparison studies: Femur radiographs today. CT scan April 22, 2017. Clinical history: trauma to pelvic area and L hip area . Findings: No evidence for acute pelvis or hip fracture. No bone destruction. Normal-appearing sacroiliac and hip joints. No soft tissue mass. Musculature look normal and symmetric. Degenerative changes in the lumbar spine. Disc narrowing L4-5 and L5-S1. No pelvic mass or ascites. Prominent small bowel loops with fluid levels noted. Measure up to 3.3 cm. Correlate for ileus or low-grade obstruction. Numerous sigmoid diverticula and sigmoid thickening attributed to muscular hypertrophy. Atherosclerotic calcification. Impression: 1. No acute skeletal findings. No evidence for acute fracture. 2. Mildly dilated small bowel with fluid levels. 3. Diverticulosis. 4. Lumbar degenerative disc disease. Electronically signed by: Sherif Anderson MD 04/05/2019 12:35 PM CDT
--- NOTE | 2019-04-05 12:52 | ED.PDOC ---
History of Present Illness - General Chief Complaint: Trauma Stated Complaint: s/p fall Time Seen by Provider: 04/05/19 11:18 - History of Present Illness Initial Comments: pt says that she fell down today and hurting her L hip and thigh , decrease range of motion , no swelling Improving Factors: immobilization Worsening Factors: movement Associated Symptoms: denies symptoms Allergies/Adverse Reactions: Allergies NO KNOWN ALLERGY Allergy (Verified 09/12/17 06:11) Home Medications: Ambulatory Orders Atorvastatin Calcium [Lipitor] 10 mg PO DAILY 09/11/17 Memantine HCl-Donepezil HCl [Namzaric 28-10 mg] 1 cap PO DAILY 09/11/17 Metformin HCl [Metformin Hydrochloride] 1,000 mg PO BID 09/11/17 Cholecalciferol [Vitamin D3] 1,000 unit PO DAILY 09/12/17 Cyanocobalamin [Vitamin B12] 5,000 mcg PO DAILY 09/12/17 Ibuprofen-Diphenhydramine HCl [Advil Pm 200-25 mg] 1 cap PO BEDTIME 04/05/19 Naproxen [Naprosyn] 250 mg PO BID #10 tab 04/05/19 Paroxetine HCl 10 mg PO DAILY 04/05/19 Tramadol HCl 50 mg PO TID #12 tab 04/05/19 Review of Systems - Review of Systems Constitutional: States: no symptoms reported EENTM: States: no symptoms reported Respiratory: States: no symptoms reported Cardiology: States: no symptoms reported Gastrointestinal/Abdominal: States: no symptoms reported Genitourinary: States: no symptoms reported Musculoskeletal: States: see HPI Skin: States: no symptoms reported Neurological: States: no symptoms reported Endocrine: States: no symptoms reported Hematologic/Lymphatic: States: no symptoms reported All other Systems: Reviewed and Negative Past Medical History (General) - Patient Medical History Hx Seizures: No Hx Stroke: No Hx Dementia: No Hx Asthma: No Hx of COPD: No Hx Cardiac Disorders: No Hx Congestive Heart Failure: No Hx Pacemaker: No Hx Hypertension: No Hx Thyroid Disease: No Hx Diabetes: Yes Hx Gastroesophageal Reflux: No Hx Renal Disease: No Hx Cancer: No Hx of HIV: No Hx Hepatitis C: No Hx MRSA: No Surgical History: Hysterectomy - Vaccination History Hx Tetanus, Diphtheria Vaccination: Yes Hx Influenza Vaccination: Yes - 2018 Hx Pneumococcal Vaccination: Yes - Social History Hx Tobacco Use: No Hx Alcohol Use: No Hx Substance Use Treatment: No Hx Depression: No Hx Physical Abuse: No Hx Emotional Abuse: No Hx Suspected Abuse: No - Female History Patient : No Family Medical History - Family History Father Family History: Unknown Living Status: Cause of : [place] Physical Exam - Physical Exam General Appearance: Alert Eye Exam: bilateral normal Ears, Nose, Throat: hearing grossly normal Neck: non-tender, full range of motion Respiratory: chest non-tender, lungs clear Cardiovascular/Chest: regular rate, rhythm Back Exam: normal inspection Extremity: pelvis stable - tenderness over the L hip nad L thigh Neurologic: no motor/sensory deficits, alert, normal mood/affect Skin Exam: normal color, warm/dry Progress - Progress Progress: 04/05/19 13:08 04/05/19 11:24 Femur,Left [RAD] Stat Laboratory Results WBC 2.9 K/mm3 (4.8-10.8) L 04/05/19 11:44 RBC 3.60 M/mm3 (4.20-5.40) L 04/05/19 11:44 Hgb 10.8 gm/dL (12.0-16.0) L 04/05/19 11:44 Hct 32.4 % (36.0-47.0) L 04/05/19 11:44 MCV 90.2 fl (81.0-99.0) 04/05/19 11:44 MCH 30.0 pg (27.0-31.0) 04/05/19 11:44 MCHC 33.3 g/dL (33.0-37.0) 04/05/19 11:44 RDW 13.5 % (11.5-14.5) 04/05/19 11:44 Plt Count 138 K/mm3 (130-400) 04/05/19 11:44 MPV 7.8 fl (7.40-10.4) 04/05/19 11:44 Absolute Neuts (auto) 2.00 K/uL (1.8-6.8) 04/05/19 11:44 Absolute Lymphs (auto) 0.50 K/uL (1.0-3.4) L 04/05/19 11:44 Absolute Monos (auto) 0.30 K/uL (0.2-0.8) 04/05/19 11:44 Absolute Eos (auto) 0.00 K/uL (0.0-0.4) 04/05/19 11:44 Absolute Basos (auto) 0.00 K/uL (0.0-0.1) 04/05/19 11:44 Neutrophils % 69.9 % (42.0-78.0) 04/05/19 11:44 Neutrophils % (Manual) 74.0 % (42.0-78.0) 04/05/19 11:44 Lymphocytes % 18.2 % (20.0-50.0) L 04/05/19 11:44 Lymphocytes % (Manual) 18.0 % 04/05/19 11:44 Monocytes % 9.4 % (2.0-9.0) H 04/05/19 11:44 Monocytes % (Manual) 6.0 % 04/05/19 11:44 Eosinophils % 1.6 % (1.0-5.0) 04/05/19 11:44 Basophils % 0.9 % (0.0-2.0) 04/05/19 11:44 Eosinophils 1.0 % 04/05/19 11:44 Basophils 1.0 % 04/05/19 11:44 Sodium 142 mmol/L (135-145) 04/05/19 11:44 Potassium 3.9 mmol/L (3.6-5.0) 04/05/19 11:44 Chloride 106 mmol/L (101-111) 04/05/19 11:44 Carbon Dioxide 27 mmol/L (21-31) 04/05/19 11:44 Anion Gap 12.9 (12-18) 04/05/19 11:44 BUN 21 mg/dL (7-18) H 04/05/19 11:44 Creatinine 0.78 mg/dL (0.6-1.3) 04/05/19 11:44 BUN/Creatinine Ratio 26.9 (10-20) H 04/05/19 11:44 Random Glucose 112 mg/dL (70-105) H 04/05/19 11:44 Serum Osmolality 286.8 mOsm/L (275-295) 04/05/19 11:44 Calcium 8.8 mg/dL (8.4-10.2) 04/05/19 11:44 Total Bilirubin 0.6 mg/dL (0.2-1.0) 04/05/19 11:44 AST 15 IU/L (10-42) 04/05/19 11:44 ALT 13 IU/L (10-60) 04/05/19 11:44 Alkaline Phosphatase 70 IU/L (42-121) 04/05/19 11:44 Serum Total Protein 6.2 gm/dL (6.4-8.2) L 04/05/19 11:44 Albumin 3.7 g/dl (3.2-5.5) 04/05/19 11:44 Globulin 2.5 gm/dL (2.3-3.5) 04/05/19 11:44 Albumin/Globulin Ratio 1.5 (1.1-1.9) 04/05/19 11:44 04/05/19 13:09 CT pelvis d/w [facility] , says that fluid levels are non specific - Results/Orders Results/Orders: 04/05/19 11:24 Femur,Left [RAD] Stat Laboratory Results WBC 2.9 K/mm3 (4.8-10.8) L 04/05/19 11:44 RBC 3.60 M/mm3 (4.20-5.40) L 04/05/19 11:44 Hgb 10.8 gm/dL (12.0-16.0) L 04/05/19 11:44 Hct 32.4 % (36.0-47.0) L 04/05/19 11:44 MCV 90.2 fl (81.0-99.0) 04/05/19 11:44 MCH 30.0 pg (27.0-31.0) 04/05/19 11:44 MCHC 33.3 g/dL (33.0-37.0) 04/05/19 11:44 RDW 13.5 % (11.5-14.5) 04/05/19 11:44 Plt Count 138 K/mm3 (130-400) 04/05/19 11:44 MPV 7.8 fl (7.40-10.4) 04/05/19 11:44 Absolute Neuts (auto) 2.00 K/uL (1.8-6.8) 04/05/19 11:44 Absolute Lymphs (auto) 0.50 K/uL (1.0-3.4) L 04/05/19 11:44 Absolute Monos (auto) 0.30 K/uL (0.2-0.8) 04/05/19 11:44 Absolute Eos (auto) 0.00 K/uL (0.0-0.4) 04/05/19 11:44 Absolute Basos (auto) 0.00 K/uL (0.0-0.1) 04/05/19 11:44 Neutrophils % 69.9 % (42.0-78.0) 04/05/19 11:44 Neutrophils % (Manual) 74.0 % (42.0-78.0) 04/05/19 11:44 Lymphocytes % 18.2 % (20.0-50.0) L 04/05/19 11:44 Lymphocytes % (Manual) 18.0 % 04/05/19 11:44 Monocytes % 9.4 % (2.0-9.0) H 04/05/19 11:44 Monocytes % (Manual) 6.0 % 04/05/19 11:44 Eosinophils % 1.6 % (1.0-5.0) 04/05/19 11:44 Basophils % 0.9 % (0.0-2.0) 04/05/19 11:44 Eosinophils 1.0 % 04/05/19 11:44 Basophils 1.0 % 04/05/19 11:44 Sodium 142 mmol/L (135-145) 04/05/19 11:44 Potassium 3.9 mmol/L (3.6-5.0) 04/05/19 11:44 Chloride 106 mmol/L (101-111) 04/05/19 11:44 Carbon Dioxide 27 mmol/L (21-31) 04/05/19 11:44 Anion Gap 12.9 (12-18) 04/05/19 11:44 BUN 21 mg/dL (7-18) H 04/05/19 11:44 Creatinine 0.78 mg/dL (0.6-1.3) 04/05/19 11:44 BUN/Creatinine Ratio 26.9 (10-20) H 04/05/19 11:44 Random Glucose 112 mg/dL (70-105) H 04/05/19 11:44 Serum Osmolality 286.8 mOsm/L (275-295) 04/05/19 11:44 Calcium 8.8 mg/dL (8.4-10.2) 04/05/19 11:44 Total Bilirubin 0.6 mg/dL (0.2-1.0) 04/05/19 11:44 AST 15 IU/L (10-42) 04/05/19 11:44 ALT 13 IU/L (10-60) 04/05/19 11:44 Alkaline Phosphatase 70 IU/L (42-121) 04/05/19 11:44 Serum Total Protein 6.2 gm/dL (6.4-8.2) L 04/05/19 11:44 Albumin 3.7 g/dl (3.2-5.5) 04/05/19 11:44 Globulin 2.5 gm/dL (2.3-3.5) 04/05/19 11:44 Albumin/Globulin Ratio 1.5 (1.1-1.9) 04/05/19 11:44 Departure - Departure Clinical Impression: Injury of hip and thigh Time of Disposition: 12:53 Disposition: Discharge to Home or Self Care Condition: Good Departure Forms: ED Discharge - Pt. Copy, Patient Portal Self Enrollment Instructions: DI for Trauma Activity: increase activity as tolerated, walking as tolerated Referrals: Mt Osullivan MD [Primary Care Provider] - 1-2 Weeks Prescriptions: Naproxen [Naprosyn] 250 mg PO BID #10 tab Tramadol HCl 50 mg PO TID #12 tab Home Medications: Ambulatory Orders Atorvastatin Calcium [Lipitor] 10 mg PO DAILY 09/11/17 Memantine HCl-Donepezil HCl [Namzaric 28-10 mg] 1 cap PO DAILY 09/11/17 Metformin HCl [Metformin Hydrochloride] 1,000 mg PO BID 09/11/17 Cholecalciferol [Vitamin D3] 1,000 unit PO DAILY 09/12/17 Cyanocobalamin [Vitamin B12] 5,000 mcg PO DAILY 09/12/17 Ibuprofen-Diphenhydramine HCl [Advil Pm 200-25 mg] 1 cap PO BEDTIME 04/05/19 Naproxen [Naprosyn] 250 mg PO BID #10 tab 04/05/19 Paroxetine HCl 10 mg PO DAILY 04/05/19 Tramadol HCl 50 mg PO TID #12 tab 04/05/19 Comments: Follow up with PCP in 1-2 days
[2019-04-05] MEDS ORDERED: KETOROLAC TROMETHAMINE INJ 30 MG/ML VIAL IM ONE (12:57)
[2019-04-05 13:34] VITALS: BP 108/77; TEMP 96.1; O2SAT 96
== END 2019-04-05 13:20 | disposition home or self-care (01) ==
LOC: ER 11:08
DX: S79.912A Unspecified injury of left hip, initial encounter (principal); S79.922A Unspecified injury of left thigh, initial encounter; E11.9 Type 2 diabetes mellitus without complications; Z79.84 Long term (current) use of oral hypoglycemic drugs; Z79.899 Other long term (current) drug therapy; W10.9XXA Fall (on) (from) unspecified stairs and steps, initial encounter; Y92.22 Religious institution as the place of occurrence of the external cause
CPT/HCPCS: 36415; 72192; 73551; 80053; 85025; J1885; J2270

== ENCOUNTER → 2019-06-29 | Outpatient (CLI) | payer MEDICARE, BC ==
--- NOTE | 2019-06-29 20:37 | MAM ---
EXAM DESCRIPTION: 3D Screening BILATERAL : Digital Mammography. CLINICAL HISTORY: 73 years Female ANNUAL SCREENING . No complaints. No personal or family history of breast cancer. Menarche age 10. Childbirth age unknown. Postmenopausal age unknown. No HRT. Lifetime risk of developing breast cancer (Tyrer-Cuzick model)(%): 3.4. COMPARISON: Bilateral screening digital breast tomosynthesis 19 June 2018 TECHNIQUE: Bilateral CC and MLO projection full-field images, digital tomosynthesis mammographic technique. Bilateral digital 2-D full-field MLO images. CAD not available for tomosynthesis or 2-D images. Study is limited due to lack of visualization of pectoral muscle on the MLO images, due to patient posture. Also seen on the prior study. FINDINGS: The breast parenchymal density pattern is: Heterogeneously dense breast tissue, which may obscure small masses. No skin thickening or nipple retraction. Bilateral scattered solitary parenchymal calcifications and bilateral secretory calcifications. Bilateral vascular and microcalcifications. Architectural distortion in the middle third of the central right breast is stable. No new focal, stellate mass or density, focal asymmetry , and no suspicious microcalcifications bilaterally. Stable mammograms compared to prior study. IMPRESSION: Benign exam. BIRAD CATEGORY: 2 BENIGN FINDINGS. RECOMMENDATIONS: FOLLOW UP: Routine digital bilateral mammographic screening, one year interval from May 2019. Written communication explaining the IMPRESSION and follow-up, will be mailed to the patient and referring health care provider. According to the [employer], yearly mammograms are recommended starting at age 40 and continuing as long as a woman is in good health. Any breast change noted on a breast self-exam should be reported promptly to the patient's healthcare provider. Breast MRI is recommended for women with an approximately 20-25% or greater lifetime risk of breast cancer, including women with a strong family history of breast or ovarian cancer and women who have been treated for Hodgkin's disease. A negative mammographic report should not delay tissue diagnosis in patients with significant clinical history or physical findings. Extremely dense breast tissue limits the sensitivity of digital mammography. Electronically signed by: Andrey Grider MD 06/29/2019 8:36 PM [facility]
== END ==
LOC: MAMMO 10:21
PROVIDERS: ATTEND Family Medicine
DX: Z12.31 Encounter for screening mammogram for malignant neoplasm of breast (principal)

== ENCOUNTER → 2020-01-12 | Outpatient (CLI) | payer MEDICARE, BC | LOC: GMAM 12:14 | PROVIDERS: ATTEND Family Medicine | DX: E53.8 Deficiency of other specified B group vitamins (principal); E55.9 Vitamin D deficiency, unspecified; E11.9 Type 2 diabetes mellitus without complications ==

== ENCOUNTER 2020-06-29 16:04 | Inpatient (IN) | payer MEDICARE, BC ==
--- NOTE | 2020-06-29 16:53 | ED.PDOC ---
History of Present Illness - General Chief Complaint: General Stated Complaint: family thinks pt is dehydrated Time Seen by Provider: 06/29/20 16:42 Additional Information: Patient is a 74-year-old female who presents to the ED with chief complaint of dehydration per her . Patient has severe dementia is on hospice and lives [facility] a [facility]. History is entirely per patient's . Patient indicates that she has been getting progressively more weak and she was noted not to be taking any p.o. today. History is otherwise unknown but is unaware of any fever, chills or vomiting. Per , patient is a DNR. - History of Present Illness Allergies/Adverse Reactions: Allergies NO KNOWN ALLERGY Allergy (Verified 09/12/17 06:11) Home Medications: Ambulatory Orders Atorvastatin Calcium [Lipitor] 10 mg PO DAILY 09/11/17 Memantine HCl-Donepezil HCl [Namzaric 28-10 mg] 1 cap PO DAILY 09/11/17 Metformin HCl [Metformin Hydrochloride] 1,000 mg PO BID 09/11/17 Cholecalciferol [Vitamin D3] 1,000 unit PO DAILY 09/12/17 Cyanocobalamin [Vitamin B12] 5,000 mcg PO DAILY 09/12/17 Ibuprofen-Diphenhydramine HCl [Advil Pm 200-25 mg] 1 cap PO BEDTIME 04/05/19 Naproxen [Naprosyn] 250 mg PO BID #10 tab 04/05/19 Paroxetine HCl [Paroxetine Hydrochloride] 10 mg PO DAILY 04/05/19 Tramadol HCl 50 mg PO TID #12 tab 04/05/19 Review of Systems - Review of Systems Unable to Obtain Due To: dementia Past Medical History (General) - Patient Medical History Hx Seizures: No Hx Stroke: No Hx Dementia: No Hx Asthma: No Hx of COPD: No Hx Cardiac Disorders: No Hx Congestive Heart Failure: No Hx Pacemaker: No Hx Hypertension: No Hx Thyroid Disease: No Hx Diabetes: Yes Hx Gastroesophageal Reflux: No Hx Renal Disease: No Hx Cancer: No Hx of HIV: No Hx Hepatitis C: No Hx MRSA: No Surgical History: no surgical history - Vaccination History Hx Tetanus, Diphtheria Vaccination: Yes Hx Influenza Vaccination: Yes - 2018 Hx Pneumococcal Vaccination: Yes - Social History Hx Tobacco Use: No Hx Alcohol Use: No Hx Substance Use Treatment: No Hx Depression: No Hx Physical Abuse: No Hx Emotional Abuse: No Hx Suspected Abuse: No - Activities of Daily Living Jail/Assisted Living (if applicable):: [facility] ([facility] applicable):: [facility] - Female History Patient : No Family Medical History - Family History Father Family History: Unknown Living Status: Cause of : [place] Physical Exam - Physical Exam General Appearance: Frail, Ill Appearing, Other - Patient is extremely weak and cachectic in appearance Ears, Nose, Throat: other - Mucous membranes are dry. There is residual food particles in patient's mouth. Neck: other - There is a contracture to patient's neck with her head tilted to the right side Respiratory: lungs clear, normal breath sounds, no respiratory distress, no accessory muscle use Cardiovascular/Chest: regular rate, rhythm, no edema, no gallop, no JVD, no murmur Peripheral Pulses: radial,right: 2+, radial,left: 2+ Gastrointestinal/Abdominal: normal bowel sounds, non tender, soft, no organomegaly Extremity: no pedal edema, other - Patient has contractures Neurologic: other - .Patient is awake but nonverbal. She has no facial droop. Cranial nerves II through XII are grossly normal but formal neurologic testing is not possible Skin Exam: warm/dry Progress - Progress Progress: 06/29/20 16:57 Differential diagnosis includes but is not limited to dehydration, acute renal insufficiency, electrolyte disorder, UTI. 06/29/20 18:45 EKG: Sinus tachycardia, rate 108, normal axis, normal QRS, ST depression inferior/anterior/lateral depression, T wave inversions inferiorly/anteriorly. Negative STEMI. 06/29/20 18:48 Patient's labs have resulted and patient is extremely hypernatremic with a sodium of 169. Her lactate is elevated but her WBC is normal and her UA is pending. Empiric antibiotics given. Patient is altered mental status her weakness is almost certainly from her severe hypernatremia. Patient's troponin is slightly elevated at 0.07 but I have low clinical concern for ACS and have a repeat troponin pending. Patient's has left the ED on an errand and it is unclear what his care intentions for the patient is patient is a hospice patient, cachectic, with high likelihood of a poor prognosis. We will discuss care wishes with once he returns to the ED. 06/29/20 19:36 Patient's has returned to the ED and I have had a long discussion with the and with patient's 2 daughters, one of whom is a nurse. Daughters tell me that patient was an active and vigorous woman in the middle of May but with dementia that was worsening. She was becoming combative towards her and she was placed in a psychiatric facility to tailor her medications and to control her behavior. Following that she was transferred to a penitentiary in stable condition but she was placed on hospice because of her dementia and her behavioral issues. Patient has been in hospice for less than a month and the daughters tell me they believe that because patient was designated a DNR and hospice patient that she was not given ample attention and she developed a neck contracture lying in a single position in bed day after day and that she was being poorly nourished. I discussed with family patient's serious condition and after deliberation they requested patient be admitted to [facility] for rehydration and electrolyte correction. Patient will remain a DNR and if her condition happens to deteriorate they are accepting that she may not survive her hospitalization. Their hope is that once patient's electrolytes are corrected that she will again regain an impetus to eat and drink such that she can properly hydrate herself and be transferred to rehab hospital. We discussed possible need for a PEG tube and family declines offer for transfer to another hospital for higher level of care saying that they do not wish to consider a feeding tube or any more aggressive intervention. Will admit for medical management per family's wishes. 06/29/20 19:52 I have discussed case with Ana Madsen, hospitalist who accepts patient for admission. Departure - Departure Clinical Impression: Hypernatremia, Dehydration, Adult failure to thrive Altered mental status Qualifiers: Altered mental status type: delirium Qualified Code(s): R41.0 - Disorientation, unspecified Time of Disposition: 19:47 Disposition: Admit Patient Condition: Serious Home Medications: Ambulatory Orders Atorvastatin Calcium [Lipitor] 10 mg PO DAILY 09/11/17 Memantine HCl-Donepezil HCl [Namzaric 28-10 mg] 1 cap PO DAILY 09/11/17 Metformin HCl [Metformin Hydrochloride] 1,000 mg PO BID 09/11/17 Cholecalciferol [Vitamin D3] 1,000 unit PO DAILY 09/12/17 Cyanocobalamin [Vitamin B12] 5,000 mcg PO DAILY 09/12/17 Ibuprofen-Diphenhydramine HCl [Advil Pm 200-25 mg] 1 cap PO BEDTIME 04/05/19 Naproxen [Naprosyn] 250 mg PO BID #10 tab 04/05/19 Paroxetine HCl [Paroxetine Hydrochloride] 10 mg PO DAILY 04/05/19 Tramadol HCl 50 mg PO TID #12 tab 04/05/19 Decision To Admit - Decistion To Admit Decision to Admit Reason: Admit from ER Decision to Admit Date: 06/29/20 Decision to Admit Time: 19:53
--- NOTE | 2020-06-29 17:14 | RAD ---
CHEST, ONE VIEW XR CLINICAL HISTORY: Weakness COMPARISON: Chest 09/12/2017 TECHNIQUE: AP Chest. FINDINGS: Heart is normal in size. There is mild aortic tortuosity. Mild aortic atherosclerosis. Pulmonary vasculature appears normal. There is a faint opacity within the right suprahilar region which may represent esophagitis of pneumonitis. Remaining lungs are clear. Lungs are mildly hyperinflated. No pleural fluid. No pneumothorax. Moderate thoracic spondylosis. Normal soft tissues. Right upper quadrant cholecystectomy clips are present. IMPRESSION: 1. Possible small focus of right suprahilar pneumonitis. 2. Hyperinflation. 3. Senescent aorta. Electronically signed by: Zina Laureano DO 06/29/2020 5:13 PM [facility]
[2020-06-29] MEDS ORDERED: CEFEPIME 2 GM in SODIUM CHL 0.9% 100ML MINI-BAG 100 ML IVPB ONE (18:53)
[2020-06-29] MEDS ORDERED: KCL 20MEQ/0.45% NS 1,000 ML IVS PRN (18:56)
--- NOTE | 2020-06-29 21:25 | HP ---
SUPERVISING PHYSICIAN: Johann Virk MD CHIEF COMPLAINT: Dehydration. HISTORY OF PRESENT ILLNESS: This is a 74 year-old female patient who has been living in the custodial for the last several months. She actually has reported to have severe dementia and she was on hospice care. Her family brought her into the Emergency Room because they thought she was severely dehydrated and felt she was being over medicated. They rescinded her hospice. It was reported in the Emergency Room that she had been self sufficient in May but for some reason became severely demented and had to be placed in a psychiatric unit for some time and then was transferred to a local custodial and placed on hospice care. It was also reported that the patient has not had any oral intake for the last 10 days to two weeks and again, the family felt like she was being over medicated. Her initial vital signs showed temperature 96.9, heart rate 87, blood pressure 112/75, respiratory rate 16, oxygen saturation 94% on room air. Lab studies were done. Her WBCs were 7,800, hemoglobin 15.1, hematocrit 46.5, she had a left shift on her differential. Her sodium 169, potassium 4.1, chloride 125, BUN 79, creatinine 1.24,glucose 199, serum osmolality 360.7, total bilirubin 1.3, troponin 0.07, lactic acid 2.7. She was given hydration and her lactic acid came down to 1.2 Urinalysis was unremarkable. Chest x-ray shows: 1. Possible small focus of right suprahilar pneumonitis. 2. Hyperinflations. 3. Senescent aorta. IT was discussed with the family the severity of her dehydration as well as her hypernatremia. The patient was admitted for some general hydration and the patient's family had asked that after she improved that she be send to a rehabilitation facility. The patient was admitted in critical condition to the hospital, she has a DNR. PAST MEDICAL HISTORY: Dementia but otherwise unknown. She does have diabetes mellitus type 2. PAST SURGICAL HISTORY: Unknown. CURRENT MEDICATIONS: ALLERGIES: Ni unknown drug allergies. FAMILY HISTORY: SOCIAL HISTORY: She is , she lives in [place] at a local nursing facility. She previously was on hospice but that was rescinded at her Emergency Room admission. It is unknown [id number] she used tobacco, alcohol or illicit drugs. REVIEW OF SYSTEMS: Unable to obtain due to patient's mental status. No family members present to ask questions. PHYSICAL EXAMINATION: VITAL SIGNS: Temperature 97.5, heart rate 67, blood pressure 92/64, respiratory rate 18, oxygen saturation 92% on room air. GENERAL: This is a 74 year-old cachectic female lying in her hospital bed. She is in no acute distress. HEENT: Normocephalic and atraumatic. Pupils are equal and reactive. Oropharynx is clear. Oral mucous membranes are very dry. NECK: Supple. CHEST: Essentially clear to auscultation bilaterally. CARDIOVASCULAR: Regular rate and rhythm. ABDOMEN: Soft, bowel sounds are positive. NEUROLOGIC: She is obtunded and does not respond to any verbal stimulus although she does withdraw to noxious stimuli. FOLLOWUP LAB: WBC 6.8, hemoglobin 13.8, hematocrit 43.9, she continues to have a left shift on her differential. Sodium 164, chloride 126, BUN 79, creatinine 1.2. serum osmolality 360.6, calcium 8.3, bilirubin 1.1, troponin 0.07. She is Covid negative. All other labs and films have been reviewed via the EMR. ASSESSMENT: 1. Hypernatremia. 2. Severe dehydration. 3. Diabetes mellitus type 2. 4. Severe dementia. 5. Questionable aspiration pneumonia. PLAN: The patient has been admitted to the hospital. We will gently rehydrate her with D5W and bring her sodium down slowly. I will do q12 hour BNP and magnesium checks. I have started her on clindamycin for possible aspiration pneumonia. We will need to speak with the family about the gravity of this patient's prophylaxis and she has not taken any of her medications for almost 2 weeks now and most likely her condition is not due to over medication. She is a DNR but she would probably benefit from comfort care, We will continue to monitor and treat as needed. [facility][id number] [facility]
[2020-06-29] MEDS ORDERED: SODIUM CHLORIDE 0.9% (FLUSH) 10 ML SYG IV PRN (21:37)
[2020-06-29] MEDS ORDERED: ONDANSETRON INJ 4 MG/2 ML VIAL IV PRN (21:37)
[2020-06-29] MEDS ORDERED: IV SET AND CAP CHANGE INJ INJ SCH (22:00)
[2020-06-29] MEDS ORDERED: DEX 5% W/NACL 0.9% 1000ML 0 ML IVS ONE (22:31)
[2020-06-29] MEDS: DEXTROSE 5% 1000ML 1,000 ML IVS PRN (22:35)
[2020-06-30] MEDS: DEXTROSE 5% 1000ML 1,000 ML IVS PRN ×2 (10:11→20:22)
[2020-06-30] MEDS: CLINDAMYCIN IV 600MG 600 MG in PREMIX BAG 1 BAG IVPB SCH ×2 (12:20→20:13)
--- NOTE | 2020-06-30 13:56 | CT ---
Study: CT of the Head. Indication: hypernatremia; ams Technique: Axial CT images of the head were acquired without intravenous contrast. This exam was performed according to our departmental dose-optimization program, which includes automated exposure control, adjustment of the mA and/or kV according to patient size and/or use of iterative reconstruction technique. Comparison: September 12, 2017. Findings: No acute ischemia, acute hemorrhage, mass effect, midline shift, or extra-axial fluid collection identified by CT. Stable calcified high left frontal meningioma. Slight progressed symmetric ventriculomegaly, likely due to the degree of global parenchymal volume loss but ultimately nonspecific. Patchy hypoattenuation of the periventricular and subcortical white matter noted. This is nonspecific but most consistent with chronic microvascular ischemic change. Global parenchymal volume loss and intracranial atherosclerosis noted as well. Paranasal sinuses are adequately aerated. Mastoid air cells are adequately aerated. Osseous structures and soft tissues are unremarkable. Impression: No acute intracranial abnormality by CT. Slight progressed symmetric ventriculomegaly, likely due to the degree of global parenchymal volume loss but ultimately nonspecific. This can be seen in the clinical setting of normal pressure hydrocephalus. Senescent changes. Electronically signed by: Sanchez Hammonds MD 06/30/2020 1:54 PM A/C TECH
--- NOTE | 2020-06-30 14:01 | CT ---
EXAM DESCRIPTION: Chest w/wo Contrast (accession [id number]), Abdomen/Pelvis w/wo Contrast (accession [id number]) CLINICAL HISTORY: 74 years Female, hypernatremia; ams TECHNIQUE: This exam was performed according to our departmental dose-optimization program, which includes automated exposure control, adjustment of the mA and/or kV according to patient size and/or use of iterative reconstruction technique. COMPARISON: None at time of initial interpretation. FINDINGS: The thyroid gland is unremarkable. No axillary adenopathy. Evaluation degraded by motion. Atherosclerotic plaque in the thoracic aorta. Coronary artery and aortic valvular calcifications. Trace pericardial fluid. No mediastinal adenopathy. No pneumothorax. No pleural effusion. No focal consolidation. No suspicious pulmonary nodule. The liver is unremarkable. No suspicious hepatic lesion. No biliary dilatation. Posterior right hepatic lobe hemangioma. Cholecystectomy. The portal vein is patent. The spleen, and adrenal glands are unremarkable. Lipomatous hypertrophy of the pancreas. Symmetric renal parenchymal enhancement. No hydronephrosis. No urolithiasis. Air in the bladder due to [employer] instrumentation. Large stool volume. No evidence of bowel obstruction or focal inflammatory change. No findings to suggest appendicitis. No adenopathy. No focal fluid collection. No free air. Normal caliber abdominal aorta. Mild atherosclerotic disease. Remote posttraumatic deformity of the left pelvis. Healing bilateral sacral insufficiency fractures. Proximal right humerus fracture nonunion. IMPRESSION: 1. Healing bilateral sacral insufficiency fractures. 2. Proximal right humerus fracture nonunion. 3. No evidence of acute process in the chest, abdomen or pelvis. Electronically signed by: Dante Ma MD 06/30/2020 1:59 PM [facility]
--- NOTE | 2020-06-30 14:01 | CT ---
EXAM DESCRIPTION: Chest w/wo Contrast (accession [id number]), Abdomen/Pelvis w/wo Contrast (accession [id number]) CLINICAL HISTORY: 74 years Female, hypernatremia; ams TECHNIQUE: This exam was performed according to our departmental dose-optimization program, which includes automated exposure control, adjustment of the mA and/or kV according to patient size and/or use of iterative reconstruction technique. COMPARISON: None at time of initial interpretation. FINDINGS: The thyroid gland is unremarkable. No axillary adenopathy. Evaluation degraded by motion. Atherosclerotic plaque in the thoracic aorta. Coronary artery and aortic valvular calcifications. Trace pericardial fluid. No mediastinal adenopathy. No pneumothorax. No pleural effusion. No focal consolidation. No suspicious pulmonary nodule. The liver is unremarkable. No suspicious hepatic lesion. No biliary dilatation. Posterior right hepatic lobe hemangioma. Cholecystectomy. The portal vein is patent. The spleen, and adrenal glands are unremarkable. Lipomatous hypertrophy of the pancreas. Symmetric renal parenchymal enhancement. No hydronephrosis. No urolithiasis. Air in the bladder due to [employer] instrumentation. Large stool volume. No evidence of bowel obstruction or focal inflammatory change. No findings to suggest appendicitis. No adenopathy. No focal fluid collection. No free air. Normal caliber abdominal aorta. Mild atherosclerotic disease. Remote posttraumatic deformity of the left pelvis. Healing bilateral sacral insufficiency fractures. Proximal right humerus fracture nonunion. IMPRESSION: 1. Healing bilateral sacral insufficiency fractures. 2. Proximal right humerus fracture nonunion. 3. No evidence of acute process in the chest, abdomen or pelvis. Electronically signed by: Dante Ma MD 06/30/2020 1:59 PM [facility]
[2020-06-30] MEDS ORDERED: ENOXAPARIN SODIUM 40 MG/0.4 ML SYG SUBCU ONE (18:53)
[2020-06-30] MEDS ORDERED: DEXTROSE 5% 1000ML 1,000 ML IVS ONE (20:20)
[2020-06-30] MEDS: ENOXAPARIN SODIUM 40 MG/0.4 ML SYG SUBCU SCH (20:49)
[2020-07-01] MEDS: CLINDAMYCIN IV 600MG 600 MG in PREMIX BAG 1 BAG IVPB SCH ×3 (04:35→20:25)
[2020-07-01] MEDS: DEXTROSE 5% 1000ML 1,000 ML IVS PRN (19:53)
[2020-07-01] MEDS: ENOXAPARIN SODIUM 40 MG/0.4 ML SYG SUBCU SCH (20:27)
[2020-07-02] MEDS ORDERED: MORPHINE SULFATE INJ 10 MG/ML VIAL ONE (15:57)
[2020-07-02] MEDS: MORPHINE SULFATE INJ 10 MG/ML VIAL IV PRN (15:58)
--- NOTE | 2020-07-03 09:58 | PN ---
SUPERVISING PHYSICIAN: Johann Virk M.D. DATE: 07/02/20 SUBJECTIVE: The patient's status is unchanged. Her family has decided to make her a care and comfort only. She is a DNR. Nursing has reported that there have been no issues with the patient. OBJECTIVE: VITAL SIGNS: Temperature 98.7, heart rate 86, blood pressure 92/58, respiratory rate 18, O2 saturation 96% on 2 liters nasal cannula. RESPIRATORY: Diminished throughout, otherwise clear to auscultation. CARDIAC: Regular rate and rhythm. NEUROLOGIC: She is obtunded. She does withdraw to noxious stimuli. LABORATORY: There are no labs or films to report at this time. ASSESSMENT: 1. Hypernatremia. 2. Severe dehydration. 3. Diabetes mellitus type 2. 4. Severe dementia. 5. Questionable aspiration pneumonia. PLAN: We will continue present supportive care. At this point, the family does not want any further medication or labs to be done other than for care and comfort. She was previously on hospice and I am not sure the family is on board again for hospice, although it would be in her best interest to have that service. I have consulted [employer] and maybe on Saturday we can make other arrangements for discharge with hospice. We will continue to monitor and treat as appropriate. [facility][id number] [facility]
[2020-07-03] MEDS: MORPHINE SULFATE INJ 10 MG/ML VIAL IV PRN ×3 (10:10→22:18)
[2020-07-03] MEDS ORDERED: MORPHINE SULFATE INJ 10 MG/ML VIAL ONE ×3 (10:10→20:28)
--- NOTE | 2020-07-03 10:38 | PN ---
SUPERVISING PHYSICIAN: Johann Virk M.D. DATE: 07/01/2020 SUBJECTIVE: The patient is lying in bed. She is obtunded. She does open her eyes to noxious stimuli. Nursing has reported that there are no new issues at this time. OBJECTIVE: VITAL SIGNS: Temperature 97.6, heart rate 78, blood pressure 114/82, respiratory rate 20, O2 saturation 97% on room air. RESPIRATORY: Diminished at the bases, otherwise clear to auscultation. CARDIAC: Regular rate and rhythm. NEUROLOGIC: She is obtunded. She does withdraw to noxious stimuli. LABORATORY: WBC 5,400, hemoglobin 13.2, hematocrit 41.4. There is a left shift on the differential. Electrolytes show a sodium of 154, potassium 3.4, chloride 120, BUN 48, creatinine 0.85, glucose 271, serum osmolality 327.6, calcium 7.5, magnesium 2.6. Preliminary blood cultures show no growth after 2 days. ASSESSMENT: 1. Hypernatremia. 2. Severe dehydration. 3. Diabetes mellitus type 2. 4. Severe dementia. 5. Questionable aspiration pneumonia. PLAN: We will continue present supportive care. We have discussed her code status with family at length and they are discussing her code status amongst themselves. She is a DNR at this time but her prognosis is very poor. Hopefully, she can be changed to care and comfort. We will monitor and treat as needed. [facility][id number] [facility]
--- NOTE | 2020-07-03 19:46 | PN ---
SUPERVISING PHYSICIAN: Roz Virk MD DATE: 07/03/20 SUBJECTIVE: The patient remains obtunded. Her is at her bedside. We have changed the patient at the family's request to care and comfort measures. The patient is resting comfortably. OBJECTIVE: VITAL SIGNS: She is running a temperature of 102.4, pulse 106, blood pressure 99/61, respirations 92, satting on 1.5 liters. GENERAL: The patient is obtunded, resting comfortably. CHEST: Lung sounds are diminished, but fairly clear. HEART: Regular rate and rhythm. ABDOMEN: Soft with bowel sounds present. NEUROLOGIC: She is obtunded, but continues to withdraw to painful stimulus. LABORATORY: No labs or x-rays to report. ASSESSMENT: 1. Severe hypernatremia secondary to severe dehydration. 2. Diabetes mellitus type 2. 3. Severe dementia, end-stage. 4. Questionable aspiration pneumonia with the patient showing 102 temperature now. PLAN: The family has decided to hold off on any further care other than care and comfort. The family is still not wanting to do hospice other than to just do care and comfort. We will keep that discussion open as needed. We will continue to monitor the patient as needed. Her outcome is extremely poor and grim with not unanticipated within the next 24 to 48 hours. Until then, we will continue to monitor and treat as needed. #[id number] [facility]
[2020-07-04] MEDS ORDERED: MORPHINE SULFATE INJ 10 MG/ML VIAL ONE (03:52)
[2020-07-04] MEDS: MORPHINE SULFATE INJ 10 MG/ML VIAL IV PRN (03:56)
[2020-07-04 04:06] VITALS: BP 101/67; TEMP 102; O2SAT 86
--- NOTE | 2020-07-06 11:00 | DS ---
SUPERVISING PHYSICIAN: Miguel Daniels MD ADMISSION DIAGNOSIS: 1. Hypernatremia. 2. Severe dehydration. 3. Diabetes mellitus, type 2. 4. Severe dementia. 5. Questionable aspiration pneumonia. DISCHARGE DIAGNOSIS: 1. secondary to cardiopulmonary arrest. 2. Severe hypernatremia secondary to dehydration. 3. Diabetes mellitus, type 2. 4. Dementia, end-stage. REASON FOR HOSPITALIZATION: This is a 74 year-old female patient who has been living in the long-term for the last several months. She actually has reported to have severe dementia and she was on hospice care. Her family brought her into the Emergency Room because they thought she was severely dehydrated and felt she was being over medicated. They rescinded her hospice. It was reported in the Emergency Room that she had been self sufficient in May but for some reason became severely demented and had to be placed in a psychiatric unit for some time and then was transferred to a local long-term and placed on hospice care. It was also reported that the patient has not had any oral intake for the last 10 days to two weeks and again, the family felt like she was being over medicated. Her initial vital signs showed temperature 96.9, heart rate 87, blood pressure 112/75, respiratory rate 16, oxygen saturation 94% on room air. Lab studies were done. Her WBCs were 7,800, hemoglobin 15.1, hematocrit 46.5, she had a left shift on her differential. Her sodium 169, potassium 4.1, chloride 125, BUN 79, creatinine 1.24,glucose 199, serum osmolality 360.7, total bilirubin 1.3, troponin 0.07, lactic acid 2.7. She was given hydration and her lactic acid came down to 1.2 Urinalysis was unremarkable. LABORATORY: Please refer to all labs in chart as well as x-rays for further review. HOSPITAL COURSE: Ms. Candelaria was admitted for severe hypernatremia and dehydration. Initial labs showed her sodium initially on admission was 169. She was started on fluids. Creatinine was normal at 0.85. She did have elevated troponin of 0.07. Lactic acid 2.7. She was treated fairly aggressively. After a period of time, her , her power of health care attorney, decided that ultimately the best course of action in the patient's interest was to go to care and comfort measures. At that time, she was switched to care and comfort measures and her stayed at her bedside ultimately until she did on 07/04/20. The patient was pronounced at 7:42 on 07/04/20. Please see the nurses notes for the final pronouncement details and disposition of the patient. DISPOSITION: The patient's body was transferred to [facility] at the request of the family. Refer to Dr. Osullivan, her primary care physician, for further notification and notice. #[id number] MTDD
== END 2020-07-04 07:42 | disposition expired | DRG 641 ==
LOC: ER 16:04 → MS 21:25 → OBSVTOIN 21:25 → MS 21:55
PROVIDERS: ADMIT Nurse Practitioner Acute Care; ATTEND Nurse Practitioner Family
DX: E87.1 Hypo-osmolality and hyponatremia (principal); E86.0 Dehydration; Z66 Do not resuscitate; E11.9 Type 2 diabetes mellitus without complications; F03.90 Unspecified dementia, unspecified severity, without behavioral disturbance, psychotic disturbance, mood disturbance, and anxiety; Z51.5 Encounter for palliative care